=== PATIENT | female | born 1960 | race Caucasian/White ===

== ENCOUNTER 2019-01-12 20:02 | Emergency (ER) | payer BC, OTHER ==
[~2019-01-12] VITALS: Ht 157.5 cm; Wt 90.3 kg
[2019-01-12] MEDS ORDERED: KEFLEX500 M1 PO (22:32)
[2019-01-12] MEDS ORDERED: HYDROCODONE-AP1 EAC6 PO (22:32)
[2019-01-12] MEDS ORDERED: NAPROSYN500 MG PO (22:32)
[2019-01-12 22:56] VITALS: BP 140/76
== END 2019-01-12 22:59 | disposition home or self-care (01) ==
LOC: ER 20:02
DX: S61.212A Laceration without foreign body of right middle finger without damage to nail, initial encounter (principal); W23.0XXA Caught, crushed, jammed, or pinched between moving objects, initial encounter; Y93.89 Activity, other specified; Y92.096 Garden or yard of other non-institutional residence as the place of occurrence of the external cause; Y99.8 Other external cause status